=== PATIENT | male | born 1965 | race Caucasian/White ===

== ENCOUNTER 2025-02-18 09:34 | Emergency (ER) | payer MEDICAID ==
[~2025-02-18] VITALS: Ht 182.9 cm; Wt 86.0 kg
[2025-02-18 09:49] VITALS: O2SAT 99
[2025-02-18 10:12] LABS: BASOPHILS % 0.5 % (0.0-2.0); EOSINOPHILS % 1.5 % (0.0-5.0); HEMATOCRIT. 40.4 % (42.0-52.0); HEMOGLOBIN. 14.1 g/dL (14.0-18.0); LYMPHOCYTES % 22.3 % (20.0-50.0); MEAN PLATELET VOLUME 8.7 fl (7.4-10.4); MONOCYTES % 7.3 % (2.0-8.0); NEUTROPHILS % 68.4 % (40.0-76.0); PLATELET 297 x1000/uL (130-400); RED BLOOD CELL COUNT 4.66 mill/uL (4.7-6.1); RED CELL DISTRIBUTION WIDTH 13.6 % (11.6-14.6)
[2025-02-18 10:29] LABS: CREATININE 1.2 mg/dL (0.6-1.3)
[2025-02-18 10:30] LABS: UREA NITROGEN BLOOD 13 mg/dL (9-23)
[2025-02-18 10:32] LABS: ASPARTATE AMINOTRANSFERASE 18 IU/L (<34); BILIRUBIN DIRECT 0.2 mg/dL (<=3.0); BILIRUBIN TOTAL 1.0 mg/dL (0.1-1.0); PROTEIN TOTAL 7.8 g/dL (6.0-8.3)
[2025-02-18] MEDS: IBUPROFEN 800MG TABLET PO NR (11:21)
[2025-02-18 12:03] LABS: CLARITY URINE CLEAR (CLEAR); COLOR URINE YELLOW (YELLOW); GLUCOSE URINE NEGATIVE (NEGATIVE); KETONES URINE NEGATIVE (NEGATIVE); LEUKOCYTE ESTERASE URINE NEGATIVE (NEGATIVE); NITRITE URINE NEGATIVE (NEGATIVE); OCCULT BLOOD URINE NEGATIVE (NEGATIVE); PH URINE 7.5 (4.5-8.0); PROTEIN URINE NEGATIVE (NEGATIVE); SPECIFIC GRAVITY URINE 1.047 (1.005-1.030); UROBILINOGEN URINE 1.0 E.U./dL (0.2-1.0)
[2025-02-18] MEDS ORDERED: AMOX1TAB16 MT (12:24)
[2025-02-18] MEDS: AMOXICILLIN/POTASSIUM CLAVULANATE 875/125MG TAB PO ONE (12:25)
[2025-02-18] MEDS ORDERED: IOHEXOL-300 100 ML BOTTLE ONE (12:29)
[2025-02-18 12:34] VITALS: BP 149/83; PULSE 66; RESP 18; TEMP 36.5; O2SAT 96
== END 2025-02-18 12:36 | disposition home or self-care (01) ==
LOC: ER 09:34
DX: K57.30 Diverticulosis of large intestine without perforation or abscess without bleeding (principal); F41.9 Anxiety disorder, unspecified; Z79.899 Other long term (current) drug therapy
CPT/HCPCS: 99285; 74177; 80076; 80048; 81003; 83690; 85025; 36415; Q9967

== ENCOUNTER 2025-02-24 12:08 | Emergency (ER) | payer MEDICAID ==
[~2025-02-24] VITALS: Ht 172.7 cm; Wt 68.0 kg
[~2025-02-24 12:08] MED LIST: AMOX1TAB16 MT
[2025-02-24 12:23] VITALS: O2SAT 100
[2025-02-24 13:13] LABS: BASOPHILS % 0.3 % (0.0-2.0); EOSINOPHILS % 0.9 % (0.0-5.0); HEMATOCRIT. 39.9 % (42.0-52.0); HEMOGLOBIN. 13.6 g/dL (14.0-18.0); LYMPHOCYTES % 17.7 % (20.0-50.0); MEAN PLATELET VOLUME 9.3 fl (7.4-10.4); MONOCYTES % 6.9 % (2.0-8.0); NEUTROPHILS % 74.2 % (40.0-76.0); PLATELET 260 x1000/uL (130-400); RED BLOOD CELL COUNT 4.60 mill/uL (4.7-6.1); RED CELL DISTRIBUTION WIDTH 13.6 % (11.6-14.6)
[2025-02-24 13:25] LABS: CREATININE 1.1 mg/dL (0.6-1.3)
[2025-02-24 13:26] LABS: UREA NITROGEN BLOOD 14 mg/dL (9-23)
[2025-02-24] MEDS: KETOROLAC 30MG/ML VIAL IM ONE (13:47)
[2025-02-24 14:49] LABS: ASPARTATE AMINOTRANSFERASE 26 IU/L (<34)
[2025-02-24 14:50] LABS: BILIRUBIN DIRECT 0.2 mg/dL (<=3.0); BILIRUBIN TOTAL 0.7 mg/dL (0.1-1.0); PROTEIN TOTAL 7.4 g/dL (6.0-8.3)
[2025-02-24 14:52] LABS: CLARITY URINE CLOUDY (CLEAR); COLOR URINE DARK YELLOW (YELLOW); GLUCOSE URINE NEGATIVE (NEGATIVE); KETONES URINE 1+ (NEGATIVE); LEUKOCYTE ESTERASE URINE TRACE (NEGATIVE); NITRITE URINE NEGATIVE (NEGATIVE); OCCULT BLOOD URINE NEGATIVE (NEGATIVE); PH URINE 6.5 (4.5-8.0); PROTEIN URINE 1+ (NEGATIVE); SPECIFIC GRAVITY URINE 1.026 (1.005-1.030); UROBILINOGEN URINE 1.0 E.U./dL (0.2-1.0)
[2025-02-24 15:23] LABS: RBC URINE NONE SEEN /hpf (0-2); WBC URINE 0-2 /hpf (0-2)
[2025-02-24] MEDS ORDERED: IOHEXOL-300 100 ML BOTTLE ONE (15:27)
[2025-02-24 15:30] LABS: BACTERIA URINE NONE SEEN; CALCIUM OXALATE CRYSTALS URINE 2+ /lpf; SQUAMOUS EPITHELIAL CELL URINE NONE SEEN /lpf (RARE/1+)
[2025-02-24 15:53] VITALS: BP 142/89; PULSE 62; RESP 16; TEMP 36.7; O2SAT 100
== END 2025-02-24 15:54 | disposition home or self-care (01) ==
LOC: ER 12:08
DX: R10.9 Unspecified abdominal pain (principal); F41.9 Anxiety disorder, unspecified; F32.A Depression, unspecified; Z98.890 Other specified postprocedural states
CPT/HCPCS: 80076; 80048; 81003; 85025; 36415; 74177; 96372; 99285; Q9967; J1885; Z7610